=== PATIENT | female | born 1980 | race Caucasian/White ===

== ENCOUNTER 2020-06-04 04:45 | Emergency (ER) | payer OTHER, SELFPAY ==
--- NOTE | ~2020-06-04 | CT_ITS ---
EXAMINATION: CT abdomen pelvis w con DATE: 06/04/2020 06:40 INDICATION: Right upper quadrant abdominal pain TECHNIQUE: Computed tomography (CT) of the abdomen and pelvis was performed with 100 cc Omnipaque 350 intravenous contrast. The dose-length product was 1481.81 mGy-cm. Automated exposure control and ite rative reconstruction technique were employed. COMPARISON: None. FINDINGS: Lung bases are unremarkable. No significant pleural or pericardial effusion. Heart size nor mal. Fatty infiltration of the liver. There is is gallbladder distention with gallstones and mild gallblad tay wall thickening, consistent with acute cholecystitis. The spleen, pancreas, adrenal glands and kidneys are unremarkable. There is a 4.1 x 2.8 cm fat-contai violeta mass in the right adnexa, consistent with teratoma. Nonobstructive bowel gas pattern. No abnorma l pelvic masses or fluid collections. No significant vascular abnormality. No lymphadenopathy. IMPRESSION: 1. Gallbladder distention with gallstones and gallbladder wall thickening, consistent with acute chol ecystitis. 2: 4.1 x 2.8 cm macroscopic fat-containing right adnexal mass, consistent with teratoma. Reviewed, dictated and finalized at location A. [facility] IMPRESSION: 1. Gallbladder distention with gallstones and gallbladder wall thickening, cons istent with acute cholecystitis. 2: 4.1 x 2.8 cm macroscopic fat-containing right adnexal mass, consistent with teratoma.
[2020-06-04 04:48] VITALS: BP 158/94; PULSE 95; RESP 16; TEMP 36.2; O2SAT 99
--- NOTE | 2020-06-04 05:08 | ED.ABDPAIN ---
HPI - Abdominal Pain General Chief Complaint: Abdominal Pain <Yemi Joe MD - Last Filed: 06/04/20 05:12> Stated Complaint: abdominal pain <Yemi Joe MD - Last Filed: 06/04/20 05:12> Time Seen by Provider: 06/04/20 04:53 <Yemi Joe MD - Last Filed: 06/04/20 05:12> History of Present Illness HPI narrative: Epigastric pain since about 1800 yesterday. Started suddenly. Characterized by constant dull burning pain with sharp paroxysms. Associated with nausea. She was seen years ago and told that she had an inflamed gall bladder. She did not follow-up. This feels similar. <Yemi Joe MD - Last Filed: 06/04/20 05:12> Related Data Allergies/Adverse Reactions: Allergies Allergy/AdvReac Type Severity Reaction Status Date / Time No Known Allergies Allergy Mild Verified 06/04/20 05:18 <Yemi Joe MD - Last Filed: 06/04/20 05:12> Review of Systems Review of Systems: All systems reviewed & are unremarkable except as noted in HPI and below <Yemi Joe MD - Last Filed: 06/04/20 05:12> Constitutional: Constitutional: Denies fever(s) <Yemi Joe MD - Last Filed: 06/04/20 05:12> Cardiovascular: Cardiovascular: Denies chest pain <Yemi Joe MD - Last Filed: 06/04/20 05:12> Respiratory: Respiratory: Reports dyspnea <Yemi Joe MD - Last Filed: 06/04/20 05:12> Gastrointestinal: Gastrointestinal: Reports abdominal pain and Reports nausea <Yemi Joe MD - Last Filed: 06/04/20 05:12> Genitourinary: Genitourinary: Denies dysuria <Yemi Joe MD - Last Filed: 06/04/20 05:12> Integumentary/Breasts: Skin/Breast: Reports as per HPI <Yemi Joe MD - Last Filed: 06/04/20 05:12> Neurologic: Denies weakness <Yemi Joe MD - Last Filed: 06/04/20 05:12> [facility] Past Medical History Medical History: Medical History (Updated 06/04/20 @ 06:47 by Yemi Joe MD) Gall bladder disease <Yemi Joe MD - Last Filed: 06/04/20 05:12> Social History Social History: Social History (Updated 06/04/20 @ 05:11 by Yemi Joe MD) Smoking status: Never smoker <Yemi Joe MD - Last Filed: 06/04/20 05:12> Exam Const: General: no acute distress <Yemi Joe MD - Last Filed: 06/04/20 05:12> Nutritional Appearance: obese morbidly obese <Yemi Joe MD - Last Filed: 06/04/20 05:12> HENMT: Head: normal to inspection <Yemi Joe MD - Last Filed: 06/04/20 05:12> Resp: Effort & Inspection: normal respiratory effort <Yemi Joe MD - Last Filed: 06/04/20 05:12> Auscultation: clear to auscultation bilaterally <Yemi Joe MD - Last Filed: 06/04/20 05:12> Cardio: Rate: regular rate <Yemi Joe MD - Last Filed: 06/04/20 05:12> Rhythm: regular rhythm <Yemi Joe MD - Last Filed: 06/04/20 05:12> GI: GI Palp: Yes Soft to palpation, Yes Tenderness to palpation present (GI), No Guarding due to palpation present (GI) and No Rebound tenderness present <Yemi Joe MD - Last Filed: 06/04/20 05:12> Skin: General skin exam: normal color <Yemi Joe MD - Last Filed: 06/04/20 05:12> Neuro: General: patient oriented x3, moves all extremities, no focal motor deficits and CN's II-XI intact bilaterally <Yemi Joe MD - Last Filed: 06/04/20 05:12> Speech: normal speech <Yemi Joe MD - Last Filed: 06/04/20 05:12> Extrem: General: no edema <Yemi Joe MD - Last Filed: 06/04/20 05:12> Course Reevaluation(s) Reevaluation #1: I discussed with patient CT showing gallstones and cholecystitis. I also discussed with right ovarian teratoma that she will need to follow up her landmen. She reports her pain has improved. I discussed return precautions. <Belle Vela MD - Last Filed: 06/04/20 18:54> Date: 06/04/20 <Belle Vela MD - Last Filed
[2020-06-04 05:23] LABS: Basophils Percent Auto 0.5 % (0.2-1.2); Eosinophils Absolute Auto 0.1 K/mm3 (0-0.3); Eosinophils Percent Auto 1.8 % (0-4.4); Hematocrit 37.8 % (37.0-47.0); Hemoglobin 12.5 g/dL (12.0-15.0); Immature Granulocyte Absolute 0.02 K/mm3 (0.00-0.031); Immature Granulocyte Percent A 0.3 % (0-0.5); Lymphocytes Absolute Auto 1.23 K/mm3 (0.9-3.2); Lymphocytes Percent Auto 16.6 % (18.3-44.2); Mean Corpuscular HGB Conc 33.1 g/dl (32-36); Mean Corpuscular Hemoglobin 26.9 pg (26-34); Mean Corpuscular Volume 81.3 fl (80-100); Mean Platelet Volume 11.8 fl (7.4-10.4); Monocytes Absolute Auto 0.5 K/mm3 (0.1-0.6); Monocytes Percent Auto 6.1 % (2.6-8.5); Neutrophils Absolute Auto 5.5 K/mm3 (1.3-6.7); Neutrophils Percent Auto 74.7 % (45.5-73.1); Platelet Count Result 192 k/mm3 (150-375); Red Blood Count 4.65 M/mm3 (4.2-5.4); Red Cell Distribution Width 13.8 % (11.5-14.5); White Blood Count 7.4 K/mm3 (4.5-10.0)
[2020-06-04] MEDS: fentaNYL CITRATE INJ (*CRX) 100 MCG/2 ML VIAL 50 MCG IV PUSH (05:31)
[2020-06-04] MEDS: SODIUM CHLORIDE 0.9% IV 1,000 ML 999 ML IV CONT (05:32)
[2020-06-04 05:42] LABS: Alanine Aminotransferase 23 U/L (4-35); Albumin Level 3.8 g/dL (3.5-5.1); Alkaline Phosphatase 60 U/L (38-126); Anion Gap 10 mmol/L (8-16); Aspartate Amino Transferase 30 U/L (14-36); Bilirubin,Total 0.4 mg/dL (0.2-1.3); Blood Urea Nitrogen 11 mg/dL (7-17); Calcium 8.9 mg/dL (8.4-10.2); Carbon Dioxide 21 mmol/L (22-30); Chloride 106 mmol/L (98-107); Estimated CRCL calculation 142 ml/min; Estimated Glomerular Filt Rate > 60; Glucose 113 mg/dL (65-105); Lipase 58 U/L (23-300); Potassium 4.1 mmol/L (3.4-5.0); Sodium 137 mmol/L (137-145)
[2020-06-04 05:53] LABS: Add Urine Microscopic? YES; Appearance Urine Cloudy (Clear); Bacteria Urine Trace /hpf; Bilirubin Urine Negative (Negative); Blood Urine 2+ (Negative); Color Urine Yellow (Yellow); Glucose Urine UA Negative (Negative); Ketones Urine Negative (Negative); Leukocyte Esterase Ur Negative LEU/UL (Negative); Mucus Urine Rare /lpf; Nitrate Urine Negative (Negative); Protein Urine Negative (Negative); Specific Grav Ur 1.018 (1.001-1.035); Squamous Epithelial Cell Urine Many /hpf (Few); Urobilinogen Urine Negative mg/dL (<2.0); WBC Urine 0-3 /hpf
[2020-06-04] MEDS: HYDROcodone/acetaminophen (*CRX) 5-325 MG TABLET 1 TAB PO (07:05)
[2020-06-04 07:08] VITALS: BP 137/86; PULSE 79; RESP 15; O2SAT 98
[2020-06-04 08:46] VITALS: BP 130/87; PULSE 80; RESP 18; O2SAT 97
== END 2020-06-04 08:47 | disposition home or self-care (01) ==
PROVIDERS: Emergency Provider Emergency Medicine
DX: K81.9 Cholecystitis, unspecified (principal); N94.89 Other specified conditions associated with female genital organs and menstrual cycle
CPT/HCPCS: 36415; 74177; 80053; 81001; 81025; 83690; 85025; 96361; 96374; 99284; A9270; J3010; J7030; Q9967

== ENCOUNTER 2020-06-09 08:22 | Outpatient (CLI) | payer OTHER, SELFPAY ==
[2020-06-09 09:26] LABS: Alanine Aminotransferase 37 U/L (4-35); Albumin Level 4.2 g/dL (3.5-5.1); Alkaline Phosphatase 68 U/L (38-126); Amylase 47 U/L (30-110); Aspartate Amino Transferase 38 U/L (14-36); Bilirubin,Total 0.5 mg/dL (0.2-1.3); Lipase 45 U/L (23-300)
== END 2020-06-09 08:23 | disposition home or self-care (01) ==
LOC: ANHSURGERY 08:26
PROVIDERS: Visit Provider Surgery
DX: Z01.818 Encounter for other preprocedural examination (principal); K80.10 Calculus of gallbladder with chronic cholecystitis without obstruction
CPT/HCPCS: 36415; 80076; 82150; 83690; 86850; 86900; 86901

== ENCOUNTER 2020-06-10 02:18 | Outpatient (CLI) | payer OTHER, SELFPAY ==
[2020-06-10 18:46] LABS: SARS-CoV-2 RNA PCR Negative
== END 2020-06-10 02:19 | disposition home or self-care (01) ==
LOC: ANHCOVIDDT 02:18
PROVIDERS: Visit Provider Surgery
DX: Z01.818 Encounter for other preprocedural examination (principal); Z20.828 Contact with and (suspected) exposure to other viral communicable diseases
CPT/HCPCS: 87635; C9803; U0003

== ENCOUNTER 2020-06-13 01:45 | Day surgery (SDC) | payer OTHER, SELFPAY ==
[2020-06-08 08:25] VITALS: BMI 51.5
[2020-06-13] VITALS (11 sets, daily range): BP systolic 104–149; BP diastolic 63–92; PULSE 60–85; RESP 14–18; TEMP 36.3–36.8; O2SAT 92–98
--- NOTE | 2020-06-13 08:27 | P.PNAN_ITS ---
Anes - Initial Pre Proc Eval Procedure: Operation Date: 06/13/20 10:30 Proposed Procedures p Laparoscopic Cholecystectomy, Possible Open - Mica Zhang MD Date/Time: 06/13/20 08:27 Surgeon: Mica Zhang MD Pre Op Diagnosis: Chronic Cholecystitis With Cholelithiasis Patient Data Age: 40 Gender: F Height: 1.6 m Weight: 132 kg Allergies Allergy/AdvReac Type Severity Reaction Status Date / Time No Known Allergies Allergy Mild Verified 06/13/20 08:30 Home Medications Medication Instructions Recorded Confirmed Type hydrocodone-acetaminophen [[facility]] 1 tablet PO Q6H PRN #10 tablet 06/04/20 06/13/20 Rx Patient hx anesthesia problems: none Family hx anesthesia problems: none PMFSH Past Medical History Medical History (Updated 06/13/20 @ 08:27 by Eusebio Simmons DO) Gall bladder disease GERD (gastroesophageal reflux disease) Surgical History Surgical History (Updated 06/07/20 @ 09:34 by Awilda Marcano) Hx of section 2006 Family History Family History Father Acute myocardial infarction Diabetes mellitus Kidney malignant neoplasm Hypertension Heart disease Mother COPD (chronic obstructive pulmonary disease) Gallbladder disease Social History Social History Smoking packs per day: 0.5 Smoking cigarettes per day: 10.0 Years smoked: 13 Smoking pack-years: 6.50 Smoking status: Former smoker Tobacco type: cigarettes Smoking end date: 07/01/19 Alcohol intake: never Substance use: never Living arrangements: with family Additional occupation/education comments: stay at home mother Gender identity (if verbalized by the patient): Female Spiritual care concerns: No Anes - Eval Final PreProcedure Day of Procedure 06/13/20 08:27 Patient weight: super morbidly obese Heart: regular rate and rhythm Lungs: clear to auscultation and normal air movement Airway: Mallampati scale class II Neurological: alert and oriented Last oral intake: >/= 8 hours ASA classification: III Emergent: no Anesthetic plan: proceed Anesthesia type and monitoring: general ETT and standard monitoring Informed Consent: The patient's anesthetic plan and its attendant risks and benefits were discussed with the patient/family/POA. Questions were solicited and answers provided to the satisfaction of the patient/family/POA.
[2020-06-13] MEDS: LACTATED RINGERS 1,000 ML 30 ML IV CONT ×2 (08:50→11:50)
[2020-06-13] MEDS: ACETAMINOPHEN 500 MG TABLET 1000 MG PO (08:59)
[2020-06-13] MEDS: KETOROLAC 15 MG/ML VIAL (*BKC) IV PUSH (09:01)
--- NOTE | 2020-06-13 10:34 | WPDHPUPDATE1 ---
History and Physical Update Update Date/Time: 06/13/20 10:34 History and Physical has been reviewed, including an updated exam of the patient. There are NO changes in the patient's condition. Risks, benefits, and alternatives have been discussed and questions answered. Patient agrees to proceed with procedure.
[2020-06-13] MEDS: ceFAZolin 3 GM/D5W 100 ML 100 ML IVPB (10:38)
[2020-06-13] MEDS: BUPIVACAINE/EPINEPHRINE 0.25% 10 ML VIAL 30 ML INFILTRATE (11:14)
--- NOTE | 2020-06-13 11:44 | P.OP_ITS ---
Procedure Note - Detailed Date of procedure: 06/13/20 Pre-op diagnosis: Chronic Cholecystitis With Cholelithiasis Post-op diagnosis: other (acute hydrops cholecystitis, cholelithiasis) Procedure performed: laparoscopic cholecystectomy Description of procedure: The patient was taken to the operating room placed in the supine position. After adequate induction of general anesthesia, the patient was prepped and draped in normal sterile fashion. A time-out was then performed to verify the patient's identity as well as the procedure being performed. I then made a 5 mm incision in the infraumbilical region. Through this, an optiview trocar was placed into the peritoneal cavity under direct visualization. CO2 gas was then insufflated. After adequate pneumoperitoneum was achieved, I then placed the laparoscope through this trocar site. Under direct visualization, I placed a further 12 mm subxiphoid port as well as 2 additional 5 mm ports in the right upper abdomen. The gallbladder was then identified and was noted to be very inflamed and distended. I decompressed the GB with an ovarian needle and at this point acute hydrops cholecystitis was noted. After decompression, I was able to place a grasper at the dome of the ga llbladder and this was retracted anterior and cephalad up over the liver. A 2nd retractor was then placed at the infundibulum and retracted laterally, this allowed visualization of the triangle of Calot. I then was able to visualize the cystic duct in its entirety from its proximal insertion into the gallbladder, to its distal junction with the common hepatic/common bile duct junction. At this point, I carefully skeletonized the proximal cystic duct with the [place] dissector. I then clipped and transected the proximal cystic duct. Next I visualized the cystic artery. Again the artery was skeletonized, clipped, and transected. I then used the Bovie cautery to take down the peritoneal attachments of the gallbladder off the liver bed. Once the gallbladder specimen was completely detached, an endo-pouch was placed through the 12 mm port site. I then placed the gallbladder specimen into the Endo pouch and removed the endo-pouch from the 12 mm port site. The specimen will now be sent to pathology for further review. I then copiously irrigated the right upper quadrant. Hemostasis was noted in the liver bed, the clips were noted to be in good position on both the cystic duct stump and the cystic artery stump. No other pathology was noted in the right upper quadrant. I then moved the laparoscope to the subxiphoid port. No iatrogenic injury or other pathology was noted in the lower abdomen. At this point, the abdomen was desufflated and all ports removed. The fascia of the 12 mm subxiphoid port was closed with a 0 Vicryl figure of 8 suture. All port sites were then closed with 4.O Monocryl subcuticular sutures. Dermabond was placed on each incision. The patient tolerated the procedure well, was extubated in the operating room postoperative and will be transferred to the recovery room in stable condition. Implants: none Anesthesia: GETA Surgeon: Mica Zhang MD Estimated blood loss (mL): 10 Drains: No Packing: No Pathology: yes Complications: No immediate complications Condition: stable Disposition: PACU Findings: acute hydrops cholecystitis, cholelithiasis
[2020-06-13] MEDS: ONDANSETRON INJ 4 MG/2 ML VIAL IV PUSH (12:02)
[2020-06-13] MEDS: fentaNYL CITRATE INJ (*CRX) 100 MCG/2 ML VIAL 25 MCG IV PUSH ×5 (12:07→13:11)
[2020-06-13] MEDS: diphenhydrAMINE HCl INJ 50 MG/ML VIAL 12.5 MG IV PUSH (12:45)
[2020-06-13] MEDS: oxyCODONE HCL (*CRX) 5 MG TAB IR PO (14:25)
== END 2020-06-13 15:00 | disposition home or self-care (01) ==
PROVIDERS: Visit Provider Surgery
PROC: 0FT44ZZ Resection of Gallbladder, Percutaneous Endoscopic Approach (ICD-10-PCS; CPT 47562; principal; 2020-06-13 10:30)
DX: K80.00 Calculus of gallbladder with acute cholecystitis without obstruction (principal); K21.9 Gastro-esophageal reflux disease without esophagitis; Z87.891 Personal history of nicotine dependence; E66.01 Morbid (severe) obesity due to excess calories; Z68.43 Body mass index [BMI] 50.0-59.9, adult
CPT/HCPCS: 47562; 88304; A9270; J0690; J1100; J1200; J1885; J2250; J2405; J2704; J2710; J3010; J7030; J7120

== ENCOUNTER 2020-10-19 10:29 | Emergency (ER) | payer OTHER, SELFPAY ==
[2020-10-19 10:53] VITALS: BP 124/99; PULSE 99; RESP 16; TEMP 36.6; O2SAT 98
--- NOTE | 2020-10-19 11:29 | ED.URI ---
HPI - URI/Sore Throat General Chief Complaint: Upper Respiratory Infection Stated Complaint: sore throat Time Seen by Provider: 10/19/20 11:07 Source: patient and RN notes reviewed Mode of arrival: ambulatory Limitations: no limitations History of Present Illness HPI Narrative: Patient presents today complaining of a sore throat since last night with some fatigue. Denies rhinorrhea, congestion, cough, headache, ear pain, loss of taste or smell, nausea, vomiting, diarrhea. Currently rates her pain 3/10 and has been taking Tylenol last night with some relief. and son sick with similar symptoms. MD elicited complaint: sore throat Related Data Home Medications Medication Instructions Recorded Confirmed No Home Medications 10/19/20 10/19/20 Allergies Allergy/AdvReac Type Severity Reaction Status Date / Time No Known Allergies Allergy Mild Verified 06/28/20 13:30 Review of Systems Review of Systems: Narrative: CONSTITUTIONAL: Denies body aches, fever, chills, or sweats. EYES: Denies visual changes, redness, or discharge. ENT: Denies rhinorrhea, congestion, or otalgia.+ Sore throat CARDIOVASCULAR: Denies chest pain, palpitations, or edema. RESPIRATORY: Denies cough or dyspnea. GASTROINTESTINAL: Denies abdominal pain, nausea, vomiting, or diarrhea. GENITOURINARY: Denies dysuria or hematuria. SKIN: Denies rash, itching, or wounds. MUSCULOSKELETAL: Denies back pain, joint pain, or myalgia. NEUROLOGIC: Denies headache, numbness, tingling, or weakness. PSYCH: Denies depression or anxiety. [facility] Past Medical History Medical History Gall bladder disease GERD (gastroesophageal reflux disease) Surgical History Surgical History Hx laparoscopic cholecystectomy 06/13/2020 Hx of section 2006 Family History Family History Father Acute myocardial infarction Diabetes mellitus Kidney malignant neoplasm Hypertension Heart disease Mother COPD (chronic obstructive pulmonary disease) Gallbladder disease Social History Social History (Updated 10/19/20 @ 11:31 by Breanne Tidwell, [facility], ) Smoking packs per day: 0.5 Smoking cigarettes per day: 10.0 Years smoked: 13 Smoking pack-years: 6.50 Smoking status: Former smoker Tobacco type: cigarettes Smoking end date: 07/01/19 Alcohol intake: never Substance use: never Additional occupation/education comments: stay at home mother Gender identity (if verbalized by the patient): Female Spiritual care concerns: No Exam Narrative: Exam Narrative: GENERAL: Well-appearing, well-nourished, and in no acute distress. HEAD: Normocephalic, atraumatic. EYES: EOMI. No redness or drainage. Conjunctivae normal. ENT: Mucous membranes pink and moist. Nares clear. No rhinorrhea. TMs normal bilaterally. Throat very mildly erythematous without edema or exudate. Uvula midline. NECK: Normal AROM. Supple. No lymphadenopathy. CHEST: No respiratory distress. Clear to auscultation. HEART: Regular rate and rhythm. No murmur appreciated. Normal peripheral pulses. EXTREMITIES: Normal range of motion. No edema. SKIN: Warm, dry, no rash. Capillary refill normal. Normal skin turgor. NEURO: No focal deficits. Alert and oriented x3. Gait steady. PSYCH: Normal affect. No signs of depression or anxiety. Course Vital Signs Vital signs: Vital Signs Temperature 97.8 F 10/19/20 10:53 Pulse Rate 99 10/19/20 10:53 Respiratory Rate 16 10/19/20 10:53 Blood Pressure 124/99 H 10/19/20 10:53 Pulse Oximetry 98 10/19/20 10:53 Temperature 97.8 F 10/19/20 10:53 Pulse Rate 99 10/19/20 10:53 Respiratory Rate 16 10/19/20 10:53 Blood Pressure 124/99 H 10/19/20 10:53 Pulse Oximetry 98 10/19/20 10:53 Reviewed. Pt has been instructed to follow up with h
== END 2020-10-19 11:38 | disposition home or self-care (01) ==
PROVIDERS: Emergency Provider Nurse Practitioner
DX: J02.8 Acute pharyngitis due to other specified organisms (principal); Z87.891 Personal history of nicotine dependence; K21.9 Gastro-esophageal reflux disease without esophagitis
CPT/HCPCS: 87081; 87880; 99213; G0463